=== PATIENT | female | born 1985 | race Two or more races ===

== ENCOUNTER 2017-07-28 10:01 | Outpatient (CLI) | payer OTHER | END 2017-07-28 10:14 | disposition home or self-care (01) | LOC: TOM 10:01 | DX: R51 Headache (principal); I34.1 Nonrheumatic mitral (valve) prolapse ==

== ENCOUNTER → 2017-07-28 | Outpatient (CLI) | payer OTHER ==
[~2017-07-28] MED LIST: CATAFLAM50 MG PO; FLONASE16 GM NS; FLUOXETINE HCL20 M1; GILTUSS TR TAB1 EACH PO; LEVAQUIN500 MG PO; PROZAC20 MG PO; URETRON DS1 TAB PO; VOLTAREM 50 MG PO; ZYRTEC10 MG PO
== END | disposition home or self-care (01) ==
LOC: PPHC 10:53
DX: R51 Headache (principal)

== ENCOUNTER 2018-05-03 15:38 | Emergency (ER) | payer OTHER ==
[~2018-05-03] VITALS: Ht 152.4 cm; Wt 74.8 kg
[2018-05-03] MEDS ORDERED: PROZAC10 MG (16:11)
== END 2018-05-03 22:04 | disposition home or self-care (01) ==
LOC: ER 15:38
DX: K59.09 Other constipation (principal); R10.31 Right lower quadrant pain

== ENCOUNTER 2018-08-04 15:45 | Emergency (ER) | payer OTHER ==
[~2018-08-04] VITALS: Ht 160 cm; Wt 74.8 kg
[~2018-08-04 15:45] MED LIST changes: +PROZAC10 MG
== END 2018-08-04 19:40 | disposition home or self-care (01) ==
LOC: ER 15:45
DX: S60.211A Contusion of right wrist, initial encounter (principal); W18.39XA Other fall on same level, initial encounter; Y93.89 Activity, other specified; Y92.89 Other specified places as the place of occurrence of the external cause; Y99.8 Other external cause status

== ENCOUNTER 2019-01-09 14:11 | Outpatient (CLI) | payer OTHER | END 2019-01-09 14:51 | disposition home or self-care (01) | LOC: LAB 14:11 | DX: N20.0 Calculus of kidney (principal) ==

== ENCOUNTER → 2019-01-11 | Outpatient (CLI) | payer OTHER | END | disposition home or self-care (01) | LOC: TOM 01-10 08:45 | DX: R31.29 Other microscopic hematuria (principal); R10.84 Generalized abdominal pain ==

== ENCOUNTER 2019-07-18 19:10 | Emergency (ER) | payer OTHER ==
[~2019-07-18] VITALS: Ht 160 cm; Wt 74.8 kg
[2019-07-18] MEDS ORDERED: PROZAC20 MG (19:32)
== END 2019-07-18 23:00 | disposition home or self-care (01) ==
LOC: ER 19:10
DX: S00.83XA Contusion of other part of head, initial encounter (principal); W18.39XA Other fall on same level, initial encounter; Y93.89 Activity, other specified; Y92.89 Other specified places as the place of occurrence of the external cause; Y99.8 Other external cause status

== ENCOUNTER 2020-01-07 19:50 | Emergency (ER) | payer OTHER ==
[~2020-01-07] VITALS: Ht 160 cm; Wt 74.8 kg
[~2020-01-07 19:50] MED LIST changes: +PROZAC20 MG
[2020-01-07] MEDS ORDERED: ADVIL (20:11)
== END 2020-01-07 22:50 ==
LOC: ER 19:50
DX: M62.838 Other muscle spasm (principal)

== ENCOUNTER 2020-01-09 12:14 | Outpatient (CLI) | payer OTHER ==
[~2020-01-09 12:14] MED LIST changes: +ADVIL
== END 2020-01-09 12:25 | disposition home or self-care (01) ==
LOC: MRI 12:14
DX: R20.2 Paresthesia of skin (principal); M54.2 Cervicalgia; G90.09 Other idiopathic peripheral autonomic neuropathy
CPT/HCPCS: 70551; 72141

== ENCOUNTER → 2020-01-24 14:46 | Outpatient (CLI) | payer OTHER | END | disposition home or self-care (01) | LOC: LAB 14:46 | PROVIDERS: ATTEND Radiology Diagnostic Radiology | DX: N20.0 Calculus of kidney (principal) ==

== ENCOUNTER → 2020-01-25 | Outpatient (CLI) | payer OTHER ==
[~2020-01-25] MED LIST changes: +LOESTRIN FE 1-1 EACH PO; +MUCINEX DM ER1 EAC1 PO; +PROMETH-CODEIN 65 ML PO; +SYMBICORT 16010.2 GM IH; +TESSALON PERLE100 M1 PO
== END | disposition home or self-care (01) ==
LOC: MRI 07:59
PROVIDERS: ATTEND Psychiatry & Neurology Neurology
DX: G45.1 Carotid artery syndrome (hemispheric) (principal); I77.71 Dissection of carotid artery
CPT/HCPCS: 70548

== ENCOUNTER 2020-02-03 11:57 | Emergency (ER) | payer OTHER ==
[~2020-02-03] VITALS: Ht 160 cm; Wt 74.8 kg
[~2020-02-03 11:57] MED LIST changes: -LOESTRIN FE 1-1 EACH PO; -MUCINEX DM ER1 EAC1 PO; -PROMETH-CODEIN 65 ML PO; -SYMBICORT 16010.2 GM IH; -TESSALON PERLE100 M1 PO
[2020-02-03] MEDS ORDERED: LOESTRIN FE 1-1 EACH PO (12:05)
[2020-02-03] MEDS ORDERED: TESSALON PERLE100 M1 PO (17:59)
[2020-02-03] MEDS ORDERED: MUCINEX DM ER1 EAC1 PO (17:59)
[2020-02-03] MEDS ORDERED: SYMBICORT 16010.2 GM IH (17:59)
[2020-02-03] MEDS ORDERED: PROMETH-CODEIN 65 ML PO (17:59)
== END 2020-02-03 18:16 | disposition home or self-care (01) ==
LOC: ER 11:57
DX: B34.9 Viral infection, unspecified (principal); R05 Cough; Z03.818 Encounter for observation for suspected exposure to other biological agents ruled out

== ENCOUNTER 2020-02-25 08:39 | Outpatient (CLI) | payer OTHER ==
[~2020-02-25 08:39] MED LIST changes: +LOESTRIN FE 1-1 EACH PO; +MUCINEX DM ER1 EAC1 PO; +PROMETH-CODEIN 65 ML PO; +SYMBICORT 16010.2 GM IH; +TESSALON PERLE100 M1 PO
== END 2020-02-25 09:47 | disposition home or self-care (01) ==
LOC: TOM 08:39
PROVIDERS: ATTEND Internal Medicine Pulmonary Disease
DX: R00.2 Palpitations (principal); R06.09 Other forms of dyspnea; R05 Cough; J30.1 Allergic rhinitis due to pollen

== ENCOUNTER 2020-03-03 08:12 | Outpatient (CLI) | payer OTHER | END 2020-03-03 08:28 | disposition home or self-care (01) | LOC: SONOGRAMA 08:12 | DX: R10.2 Pelvic and perineal pain (principal) ==

== ENCOUNTER → 2020-03-13 | Outpatient (CLI) | payer OTHER | END | disposition home or self-care (01) | LOC: RX STUDY 08:54 | PROVIDERS: ATTEND Internal Medicine Gastroenterology | DX: M62.830 Muscle spasm of back (principal); R13.12 Dysphagia, oropharyngeal phase; M54.6 Pain in thoracic spine; M54.5 Low back pain; E04.1 Nontoxic single thyroid nodule ==

== ENCOUNTER 2020-07-25 07:46 | Outpatient (CLI) | payer OTHER | END 2020-07-25 08:07 | disposition home or self-care (01) | LOC: SONOGRAMA 07:46 | PROVIDERS: ATTEND Internal Medicine Nephrology | DX: N28.1 Cyst of kidney, acquired (principal) ==

== ENCOUNTER 2021-03-10 09:52 | Outpatient (CLI) | payer OTHER ==
[2021-03-12] MEDS ORDERED: PEPCID40 MG PO (00:51)
[2021-03-12] MEDS ORDERED: LEVSIN/SL0.125 MG SL (00:51)
[2021-03-12] MEDS ORDERED: ZOFRAN8 MG PO (00:51)
== END 2021-03-10 09:55 | disposition home or self-care (01) ==
LOC: RAD 09:52
PROVIDERS: ATTEND Physical Medicine & Rehabilitation
DX: M54.2 Cervicalgia (principal); M54.6 Pain in thoracic spine

== ENCOUNTER → 2021-03-11 | Emergency (ER) | payer OTHER ==
[~2021-03-11] VITALS: Ht 154.9 cm; Wt 79.8 kg
[~2021-03-11] MED LIST changes: +LEVSIN/SL0.125 MG SL; +PEPCID40 MG PO; +ZOFRAN8 MG PO
== END | disposition home or self-care (01) ==
LOC: ER 19:35
DX: K29.60 Other gastritis without bleeding (principal); N39.0 Urinary tract infection, site not specified; R10.11 Right upper quadrant pain

== ENCOUNTER 2021-10-07 08:58 | Outpatient (CLI) | payer OTHER | END 2021-10-07 08:59 | disposition home or self-care (01) | LOC: NUCLEAR 08:58 | PROVIDERS: ATTEND Internal Medicine Pulmonary Disease | DX: R06.00 Dyspnea, unspecified (principal); F32.A Depression, unspecified; U09.9 Post COVID-19 condition, unspecified ==

== ENCOUNTER 2021-10-07 10:45 | Outpatient (CLI) | payer OTHER | END 2021-10-07 11:03 | disposition home or self-care (01) | LOC: TOM 10:45 | PROVIDERS: ATTEND Internal Medicine Pulmonary Disease | DX: R06.00 Dyspnea, unspecified (principal); U09.9 Post COVID-19 condition, unspecified; F32.A Depression, unspecified ==

== ENCOUNTER 2022-02-17 16:24 | Emergency (ER) | payer OTHER ==
[~2022-02-17] VITALS: Ht 160 cm; Wt 81.6 kg
== END 2022-02-17 19:45 | disposition home or self-care (01) ==
LOC: ER 16:24
DX: R51.9 Headache, unspecified (principal); Z88.0 Allergy status to penicillin; Z91.013 Allergy to seafood; W22.8XXA Striking against or struck by other objects, initial encounter; Y93.9 Activity, unspecified; Y92.019 Unspecified place in single-family (private) house as the place of occurrence of the external cause

== ENCOUNTER 2022-06-10 11:26 | Outpatient (CLI) | payer OTHER | END 2022-06-10 11:34 | disposition home or self-care (01) | LOC: RAD 11:26 | DX: R05.9 Cough, unspecified (principal) ==

== ENCOUNTER 2022-10-08 11:07 | Outpatient (CLI) | payer OTHER | END 2022-10-08 11:10 | disposition home or self-care (01) | LOC: MAMO-SONO 11:07 | PROVIDERS: ATTEND Anesthesiology | DX: N60.11 Diffuse cystic mastopathy of right breast (principal); N60.12 Diffuse cystic mastopathy of left breast; N64.4 Mastodynia; Z12.31 Encounter for screening mammogram for malignant neoplasm of breast ==

== ENCOUNTER 2022-11-23 19:55 | Emergency (ER) | payer OTHER ==
[~2022-11-23] VITALS: Ht 160 cm; Wt 83.9 kg
== END 2022-11-23 21:33 | disposition home or self-care (01) ==
LOC: ER 19:55
DX: B02.9 Zoster without complications (principal); Z88.0 Allergy status to penicillin; Z91.013 Allergy to seafood

== ENCOUNTER → 2022-11-30 | Outpatient (CLI) | payer OTHER | END | disposition home or self-care (01) | LOC: SONOGRAMA 09:20 | DX: R31.9 Hematuria, unspecified (principal) ==

== ENCOUNTER 2023-04-01 09:25 | Emergency (ER) | payer OTHER ==
[~2023-04-01] VITALS: Ht 160 cm; Wt 81.6 kg
== END 2023-04-01 10:24 | disposition home or self-care (01) ==
LOC: ER 09:25
DX: R07.9 Chest pain, unspecified (principal); Z88.0 Allergy status to penicillin; Z91.013 Allergy to seafood; M94.0 Chondrocostal junction syndrome [Tietze]

== ENCOUNTER 2023-04-26 02:14 | Emergency (ER) | payer OTHER ==
[~2023-04-26] VITALS: Ht 160 cm; Wt 81.6 kg
== END 2023-04-26 03:51 | disposition home or self-care (01) ==
LOC: ER 02:15
DX: J06.9 Acute upper respiratory infection, unspecified (principal); Z88.0 Allergy status to penicillin; Z91.013 Allergy to seafood

== ENCOUNTER 2023-07-18 14:05 | Outpatient (CLI) | payer OTHER | END 2023-07-18 14:20 | disposition home or self-care (01) | LOC: MRI 14:05 | PROVIDERS: ATTEND Physical Medicine & Rehabilitation | DX: S93.402A Sprain of unspecified ligament of left ankle, initial encounter (principal) | CPT/HCPCS: 73721 ==

== ENCOUNTER 2023-08-08 12:40 | Emergency (ER) | payer OTHER ==
[~2023-08-08] VITALS: Ht 160 cm; Wt 81.6 kg
[2023-08-08 14:24] LABS: PH,URINE 6.5 (5.0-8.0); URINE APPEARANCE Error; URINE BILIRRUBIN Negative (NEGATIVE); URINE BLOOD Small; URINE COLOR Yellow; URINE GLUCOSE Negative (NEGATIVE); URINE LEUKOCYTE Negative; URINE NITRATE Negative; URINE PROTEIN Negative (NEGATIVE); URINE UROBILINOGEN 0.2 E.U./dl
[2023-08-08 14:28] LABS: URINE BACTERIA 339.9 uL (0.0-1933); URINE EPITHELIAL CELLS 8.1 uL (0.0-38.8); URINE RBC 27.4 uL (0.0-20.8); URINE WBC 4.7 uL (0.0-23.2)
[2023-08-08 15:17] LABS: HEMATOCRIT 42.4 % (36.0-45.00); HEMOGLOBIN 14.6 g/dL (12.0-15.00); MEAN CELL VOLUME 89.3 fL (80.00-100.00); MEAN CORPUSCULAR HEMOGLOBIN 30.7 pg (27.00-32.0); MEAN CORPUSCULAR HGB CONC 34.4 g/dl (32.0-36.0); PLATELET COUNT 344 K/uL (150-450); RED BLOOD COUNT 4.75 M/uL (4.00-6.00); RED CELL DISTRIBUTION WIDTH 13.4 % (11.5-14.5)
[2023-08-08 16:03] LABS: CALCIUM 9.4 mg/dL (8.5-10.1); CREATININE SERUM 0.69 mg/dL (0.55-1.02); GFR 96.27; POTASSIUM 3.96 mEq/L (3.5-5.1)
[2023-08-08 17:33] LABS: ALBUMIN 3.7 gm/dL (3.4-5.0); ALKALINE PHOSPHATASE 55 U/L (50-136); ALT/SGPT 26 U/L (12-78); AMYLASE 37 U/L (25-115); AST/SGOT 14 U/L (15-37); BILIRUBIN TOTAL 0.18 mg/dL (0.3-1.2); BILIRUBIN,CONJUGATED < 0.10 mg/dL (0.0-0.2); BILIRUBIN,UNCONJUGATED 0.08 mg/dL (0.0-0.6); LIPASE 25 U/L (13-75)
== END 2023-08-08 18:50 | disposition home or self-care (01) ==
LOC: ER 12:40
PROVIDERS: Emergency Medicine; General Practice
DX: N39.0 Urinary tract infection, site not specified (principal); R10.9 Unspecified abdominal pain; Z88.0 Allergy status to penicillin; Z91.013 Allergy to seafood
CPT/HCPCS: 36415; 74177; Q9965

== ENCOUNTER 2023-08-17 13:07 | Outpatient (CLI) | payer OTHER | END 2023-08-17 13:18 | disposition home or self-care (01) | LOC: MAMO-SONO 13:07 | PROVIDERS: ATTEND Obstetrics & Gynecology | DX: N63.10 Unspecified lump in the right breast, unspecified quadrant (principal); N63.20 Unspecified lump in the left breast, unspecified quadrant ==

== ENCOUNTER 2024-02-23 01:54 | Emergency (ER) | payer OTHER ==
[~2024-02-23] VITALS: Ht 160 cm; Wt 70.3 kg
[~2024-02-23 01:54] MED LIST changes: +MECLIZINE HCL12.5 MG PO; +ZEPBOUND2.5 MG/0.5
[2024-02-23] MEDS ORDERED: AZELASTIN-FLUTI23 GM NS (02:16)
[2024-02-23] MEDS ORDERED: METHYLPREDNISOLONE SOD SUCC 125 MG VIAL IM STA (03:01)
[2024-02-23] MEDS ORDERED: ZYNCOF 20-400120 ML PO (05:36)
== END 2024-02-23 05:43 ==
LOC: ER 01:56
DX: R06.02 Shortness of breath (principal); J45.998 Other asthma; Z88.0 Allergy status to penicillin; Z91.013 Allergy to seafood

== ENCOUNTER 2024-02-23 13:49 | Outpatient (CLI) | payer OTHER ==
[~2024-02-23 13:49] MED LIST changes: +AZELASTIN-FLUTI23 GM NS; +ZYNCOF 20-400120 ML PO
== END 2024-02-23 13:56 | disposition home or self-care (01) ==
LOC: RAD 13:49
DX: R06.2 Wheezing (principal); R05.1 Acute cough; J45.901 Unspecified asthma with (acute) exacerbation

== ENCOUNTER 2024-03-08 16:41 | Emergency (ER) | payer OTHER ==
[~2024-03-08] VITALS: Ht 160 cm; Wt 68.9 kg
[2024-03-08 16:50] VITALS: BP 116/76; O2SAT 94
[2024-03-08] MEDS ORDERED: METHYLPREDNISOLONE SOD SUCC 40 MG VIAL IM ONE (17:15)
[2024-03-08] MEDS ORDERED: LEVALBUTEROL HCL 0.63 MG/3 ML SOLUTION IH SCH (17:15)
[2024-03-08 18:14] LABS: ALBUMIN 3.6 gm/dL (3.4-5.0); BILIRUBIN TOTAL 0.29 mg/dL (0.3-1.2); CALCIUM 9.5 mg/dL (8.5-10.1); CREATININE SERUM 0.65 mg/dL (0.55-1.02); GFR 102.56; GLOBULINA 3.8 G/DL (2.4-3.5); POTASSIUM 3.46 mEq/L (3.5-5.1); TOTAL PROTEIN 7.4 gm/dL (6.4-8.2)
[2024-03-08 18:23] LABS: HEMATOCRIT 39.9 % (36.0-45.00); HEMOGLOBIN 13.4 g/dL (12.0-15.00); MEAN CELL VOLUME 91.5 fL (80.00-100.00); MEAN CORPUSCULAR HEMOGLOBIN 30.6 pg (27.00-32.0); MEAN CORPUSCULAR HGB CONC 33.4 g/dl (32.0-36.0); PLATELET COUNT 352 K/uL (150-450); RED BLOOD COUNT 4.36 M/uL (4.00-6.00); RED CELL DISTRIBUTION WIDTH 13.2 % (11.5-14.5)
[2024-03-08 18:25] LABS: ABG PH 7.453 (7.35-7.45); ABG pCO2 30.1 mmHg (35-45); BASE EXCESS -2.1 mmol/l; BICARBONATE 20.6 mmol/l (23-25); SaO2 98.6 %; Tco2 21.5 mmol/l
[2024-03-08 18:26] LABS: allen test SATISFACTORY; o2 21 %; puncture site RADIAL RIGHT
[2024-03-08] MEDS ORDERED: LEVALBUTER0.63 MG/3 IH (22:03)
[2024-03-08] MEDS ORDERED: MONTELUKAST SODI4 M1 PO (22:03)
[2024-03-08] MEDS ORDERED: BENZONATATE200 M1 PO (22:03)
== END 2024-03-08 22:34 | disposition home or self-care (01) ==
LOC: ER 16:42
PROVIDERS: General Practice
DX: J45.901 Unspecified asthma with (acute) exacerbation (principal); J02.0 Streptococcal pharyngitis; Z88.0 Allergy status to penicillin; Z91.013 Allergy to seafood

== ENCOUNTER 2024-03-21 10:17 | Outpatient (CLI) | payer OTHER ==
[~2024-03-21 10:17] MED LIST changes: +BENZONATATE200 M1 PO; +LEVALBUTER0.63 MG/3 IH; +MONTELUKAST SODI4 M1 PO
== END 2024-03-21 10:29 | disposition home or self-care (01) ==
LOC: SONOGRAMA 10:17
DX: E03.8 Other specified hypothyroidism (principal); N92.6 Irregular menstruation, unspecified

== ENCOUNTER 2025-02-04 03:02 | Emergency (ER) | payer OTHER ==
[~2025-02-04] VITALS: Ht 160 cm; Wt 60.8 kg
[2025-02-04] MEDS ORDERED: METHYLPREDNISOLONE SOD SUCC 125 MG VIAL IM STA (04:42)
[2025-02-04] MEDS ORDERED: BUDESONIDE 0.5 MG/2 ML AMPUL.NEB IH STA (04:44)
[2025-02-04] MEDS ORDERED: GUAIFENESIN 200 MG/10 ML BLIST.PACK PO STA (04:44)
[2025-02-04] MEDS ORDERED: LEVALBUTEROL HCL 0.63 MG/3 ML SOLUTION IH SCH (04:45)
[2025-02-04] MEDS ORDERED: GUAIFENESIN 200 MG/10 ML BLIST.PACK PO ONE (04:47)
[2025-02-04] MEDS ORDERED: METHYLPREDNISOLONE SOD SUCC 125 MG VIAL ONE (04:47)
[2025-02-04] MEDS ORDERED: WATER FOR INJ.,BACTERIOSTATIC 30 ML VIAL IJ ONE (04:47)
[2025-02-04] MEDS ORDERED: LEVALBUTEROL HCL 1.25 MG/3 ML SOLUTION IH ONE (05:24)
[2025-02-04] MEDS ORDERED: LEVALBUTEROL HCL 0.63 MG/3 ML SOLUTION IH ONE (05:25)
[2025-02-04] MEDS ORDERED: BUDESONIDE 0.5 MG/2 ML AMPUL.NEB IH ONE (05:36)
[2025-02-04] MEDS ORDERED: LEVALBUTER0.63 MG/3 IH (06:29)
[2025-02-04] MEDS ORDERED: BUDESONIDE0.5 MG/2 M IH (06:29)
[2025-02-04] MEDS ORDERED: PHENAGIL TABLE1 EACH PO (06:34)
== END 2025-02-04 06:38 ==
LOC: ER 03:02
DX: R06.02 Shortness of breath (principal); Z88.0 Allergy status to penicillin; Z91.013 Allergy to seafood; Z87.09 Personal history of other diseases of the respiratory system

== ENCOUNTER 2025-03-29 08:05 | Outpatient (CLI) | payer OTHER ==
[~2025-03-29 08:05] MED LIST changes: +BUDESONIDE0.5 MG/2 M IH; +PHENAGIL TABLE1 EACH PO
== END 2025-03-29 08:10 | disposition home or self-care (01) ==
LOC: TOM 08:05
DX: E03.8 Other specified hypothyroidism (principal); J34.2 Deviated nasal septum; J34.3 Hypertrophy of nasal turbinates; R09.81 Nasal congestion

== ENCOUNTER 2025-04-24 11:43 | Outpatient (CLI) | payer OTHER | END 2025-04-24 11:55 | disposition home or self-care (01) | LOC: RAD 11:43 | DX: M25.572 Pain in left ankle and joints of left foot (principal) | CPT/HCPCS: 73721 ==